=== PATIENT | female | born 1990 | race Caucasian/White ===

== ENCOUNTER 2021-05-17 18:38 | Emergency (ER) | payer OTHER | END 2021-05-17 20:13 | disposition home or self-care (01) | LOC: FER 18:38 | DX: O22.43 Hemorrhoids in pregnancy, third trimester (principal); O99.323 Drug use complicating pregnancy, third trimester; F11.10 Opioid abuse, uncomplicated; Z3A.28 28 weeks gestation of pregnancy | CPT/HCPCS: 99283 ==